=== PATIENT | male | born 1985 | race Caucasian/White ===

== ENCOUNTER 2019-11-19 22:21 | Emergency (ER) | payer OTHER ==
[~2019-11-19] VITALS: Ht 188 cm; Wt 138.3 kg
[2019-11-19] MEDS ORDERED: LISINOPRIL10 MG PO (22:51)
[2019-11-19] MEDS ORDERED: OMEPRAZOLE 20 M20 M1 PO (22:52)
[2019-11-20 01:46] VITALS: BP 121/46
== END 2019-11-20 01:46 | disposition home or self-care (01) ==
LOC: M.ERS 22:21
DX: U07.1 COVID-19 (principal); F17.210 Nicotine dependence, cigarettes, uncomplicated

== ENCOUNTER → 2020-11-27 | Outpatient (CLI) | payer OTHER ==
[~2020-11-27] MED LIST: LISINOPRIL10 MG PO; OMEPRAZOLE 20 M20 M1 PO
== END ==
LOC: M.LAB 12:09
PROVIDERS: ATTEND Orthopaedic Surgery
DX: Z01.812 Encounter for preprocedural laboratory examination (principal); Z20.822 Contact with and (suspected) exposure to COVID-19

== ENCOUNTER → 2021-06-13 | Outpatient (CLI) | payer OTHER | LOC: M.LAB 15:06 | PROVIDERS: ATTEND Internal Medicine Gastroenterology | DX: Z01.812 Encounter for preprocedural laboratory examination (principal); Z20.822 Contact with and (suspected) exposure to COVID-19 ==